=== PATIENT | male | born 1980 | race Caucasian/White ===

== ENCOUNTER 2017-05-13 19:24 | Emergency (ER) | payer SELFPAY ==
[~2017-05-13] VITALS: Ht 185.4 cm; Wt 80.0 kg
[~2017-05-13 19:24] MED LIST: Z.0.NO CURRENT MEDS
[2017-05-13 19:29] VITALS: BP 134/88; PULSE 74; RESP 16; TEMP 98.7; O2SAT 99
[2017-05-13] MEDS ORDERED: CEPH-460 PO (19:58)
[2017-05-13] MEDS ORDERED: TETANUS/DIPHTHERIA TOXOID ADULT 0.5 ML VIAL IM ONE (20:00)
--- NOTE | 2017-05-13 20:08 | PD ---
HPI Chief Complaint: Oral / Dental Pain or Problem Time Seen by Provider: 19:46 Travel History International Travel<30 days: No Contact w/Intl Traveler<30days: No Traveled to known affect area: No History of Present Illness HPI 36-year-old male presents to the emergency room for evaluation of lower lip laceration after injury just prior to arrival. Patient was playing basketball when he got struck by someone's shoulder in the face. He accidentally bit his lip. Denies loss of consciousness. States his tooth little loose but he has a follow-up appointment with his dentist. He washed his wound out and then came to the emergency room. No chronic medical conditions or daily medications. Unknown last tetanus. PFSH Past Medical History Medical History: Denies Significant Hx Diminished Hearing: No Musculoskeletal: Yes Immunizations Current: Yes Tetanus Vaccination: > 5 Years Past Surgical History Surgical History: No Previous Surgery Pacemaker: No Social History Alcohol Use: Yes (SOCIAL) Tobacco Use: No Substance Use: Yes (MARIJUANA) Allergies-Medications (Allergen,Severity, Reaction): Coded Allergies: No Known Allergies (Verified Allergy, Mild, 05/13/17) Reported Meds & Prescriptions Reported Meds & Active Scripts Active Keflex (Cephalexin) 500 Mg Cap 500 Mg PO Q6H 5 Days Reported No Current Meds (Miscellaneous Medication) Misc Review of Systems Except as stated in HPI: all other systems reviewed are Neg Physical Exam Narrative GENERAL: Well-nourished, well-developed male in no acute distress. Afebrile. Ambulatory. SKIN: Focused skin assessment warm/dry. There is a 0.5 cm superficial laceration to the wet mucosa of the middle lower lip. HEAD: Normocephalic. EYES: No scleral icterus. No injection or drainage. NECK: Supple, trachea midline. No JVD or lymphadenopathy. DENTAL: No significantly loosened or chipped teeth. No malocclusion. CARDIOVASCULAR: Regular rate and rhythm without murmurs, gallops, or rubs. RESPIRATORY: Breath sounds equal bilaterally. No accessory muscle use. Data Data Last Documented VS Vital Signs Date Time Temp Pulse Resp B/P (MAP) Pulse Ox O2 Delivery O2 Flow Rate FiO2 05/13/17 19:29 98.7 74 16 134/88 (103) 99 Room Air Orders Orders Tetanus/Diphtheria Tox Adult (Tetanus/Di (05/13/17 20:00) [facility] Medical Decision Making Medical Screen Exam Complete: Yes Emergency Medical Condition: Yes Medical Record Reviewed: Yes Differential Diagnosis Laceration, contusion, abrasion, fracture, hematoma Narrative Course 36-year-old male presents to the emergency room for evaluation of lip laceration that occurred just prior to arrival. Patient slipped after somebody fell into him with their shoulder during basketball. No other injuries. He reports some loose teeth but has a follow-up appointment with his dentist. No obviously loose teeth on exam. The laceration is approximately 5 mm and superficial. No indication for primary closure at this time. It was thoroughly cleansed with saline. Patient updated on tetanus. Discharged with wound care instructions and prescription for Keflex. Told to follow up with her PCP or return for worsening symptoms. He understands and agrees to plan. Diagnosis Primary Impression: Lip laceration Qualified Codes: S01.511A - Laceration without foreign body of lip, initial encounter Referrals: Primary Care Physician Additional Instructions: Avoid spicy and salty foods. Keep wound clean and dry. Keflex as directed, until gone. Follow-up with a PCP. Return for worsening symptoms such as signs of infection. Med/Other Pt SpecificInfo: Prescription(s) given Scripts Cephalexin (Keflex) 500 Mg Cap 500 MG PO Q6H for Infection for 5 Days, #20 CAP 0 Refills Prov: Socorro Walsh 05/13/17 Disposition: 01 DISCHARGE HOME Condition: Stable Lorena Johansen May 13, 2017 20:08
[2017-05-13] MEDS ORDERED: CEPHALEXIN MONOHYDRATE 500 MG CAP PO ONE (20:15)
== END 2017-05-13 20:31 | disposition home or self-care (01) ==
LOC: NEPK 19:24
DX: S01.511A Laceration without foreign body of lip, initial encounter (principal); F12.90 Cannabis use, unspecified, uncomplicated; Y93.67 Activity, basketball
CPT/HCPCS: 90471; 90714